=== PATIENT | male | born 2000 | race Two or more races ===

== ENCOUNTER 2023-04-05 04:00 | Emergency (ER) | payer OTHER ==
[~2023-04-05] VITALS: Ht 172.7 cm; Wt 81.6 kg
[2023-04-05 04:59] LABS: HEMATOCRIT 45.9 % (39.0-48.0); HEMOGLOBIN 15.8 g/dL (13-16.00); MEAN CELL VOLUME 89.7 fL (80.0-100.00); MEAN CORPUSCULAR HEMOGLOBIN 30.9 pg (27.00-32.0); MEAN CORPUSCULAR HGB CONC 34.4 g/dl (32.0-36.0); PLATELET COUNT 261 K/uL (150-450); RED BLOOD COUNT 5.11 M/uL (4.00-6.00); RED CELL DISTRIBUTION WIDTH 13.7 % (11.5-14.5)
[2023-04-05 05:11] LABS: ABG PH 7.403 (7.35-7.45); ABG PO2 170.8 mmHg (80-100); ABG pCO2 30.8 mmHg (35-45); BASE EXCESS -4.7 mmol/l; BICARBONATE 18.8 mmol/l (23-25); SaO2 99.5 %; Tco2 19.7 mmol/l
[2023-04-05 05:19] LABS: PARTIAL THROMBOPLASTIN TIME 28.2 SECONDS (22.0-34.0); PROTHROMBIN TIME 10.5 SECONDS (9.0-11.5)
[2023-04-05 05:42] LABS: allen test SATISFACTORY; o2 36 %; puncture site RADIAL LEFT
[2023-04-05 06:31] LABS: BILIRUBIN TOTAL 0.35 mg/dL (0.3-1.2); CALCIUM 8.9 mg/dL (8.5-10.1); CREATININE SERUM 1.1 mg/dL (0.70-1.30); GFR 84.5; GLOBULINA 3.2 G/DL (2.4-3.5); POTASSIUM 4.07 mEq/L (3.5-5.1); TOTAL PROTEIN 7.2 gm/dL (6.4-8.2)
[2023-04-05 07:00] LABS: COCAINE NEGATIVE (NEGATIVE); METHADONE NEGATIVE (NEGATIVE); OPIATES NEGATIVE (NEGATIVE); THC ( Cannabinoids) POSITIVE (NEGATIVE)
== END 2023-04-05 13:30 | disposition home or self-care (01) ==
LOC: ER 04:00
DX: S11.82XA Laceration with foreign body of other specified part of neck, initial encounter (principal); X58.XXXA Exposure to other specified factors, initial encounter; Y93.89 Activity, other specified; Y92.89 Other specified places as the place of occurrence of the external cause; Y99.8 Other external cause status; Z20.822 Contact with and (suspected) exposure to COVID-19
CPT/HCPCS: 12001; 70491; 71045; 82803; 93041; 94760; Q9965